=== PATIENT | male | born 1955 | race Caucasian/White ===

== ENCOUNTER 2016-12-03 10:20 | Emergency (ER) | payer OTHER ==
[2016-12-03 10:40] VITALS: BMI 26.4
[2016-12-03 10:41] VITALS: TEMP 98.7
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
[2016-12-03 12:27] VITALS: BP 145/70; PULSE 98
== END 2016-12-03 12:26 | disposition home or self-care (01) ==
LOC: ED 10:20 → EDMC 12:26
DX: S16.1XXA Strain of muscle, fascia and tendon at neck level, initial encounter (principal); V49.40XA Driver injured in collision with unspecified motor vehicles in traffic accident, initial encounter; Y93.9 Activity, unspecified; Y92.410 Unspecified street and highway as the place of occurrence of the external cause
CPT/HCPCS: 72050; 99283